=== PATIENT | male | born 2005 | race African-American/Black ===

== ENCOUNTER 2025-06-04 17:20 | Emergency (ER) | payer OTHER ==
[~2025-06-04] VITALS: Ht 172.7 cm; Wt 70.0 kg
[2025-06-04 20:39] VITALS: BP 118/66; TEMP 98; O2SAT 99
== END 2025-06-04 20:40 | disposition home or self-care (01) ==
LOC: M ED 17:20
DX: S90.31XA Contusion of right foot, initial encounter (principal); W20.8XXA Other cause of strike by thrown, projected or falling object, initial encounter; Y92.139 Unspecified place military base as the place of occurrence of the external cause; Y93.89 Activity, other specified; Y99.1 Military activity